=== PATIENT | female | born 1995 | race Caucasian/White ===

== ENCOUNTER 2019-05-23 19:39 | Emergency (ER) | payer OTHER, SELFPAY | END 2019-05-23 20:05 | disposition home or self-care (01) | LOC: NAV ERS 19:39 | DX: S01.01XA Laceration without foreign body of scalp, initial encounter (principal); W22.8XXA Striking against or struck by other objects, initial encounter; Y92.009 Unspecified place in unspecified non-institutional (private) residence as the place of occurrence of the external cause | CPT/HCPCS: 99283 ==